=== PATIENT | female | born 1940 ===

== ENCOUNTER 2025-05-25 09:48 | Outpatient (AMB) | payer OTHER, SELFPAY ==
--- NOTE | 2025-05-25 09:52 | A.PHYSOV_ITS ---
Intake Visit Reasons: B/L KNEE INJECTIONS Intake Note: Patient is a 84 year old female here today for bilateral knee injections Clinical Fellow Required: No Allergies oxycodone Allergy (Unknown, Verified 05/25/25 09:53) Unknown Penicillins Allergy (Unknown, Verified 05/25/25 09:53) Unknown [facility] Surgical History (Updated 05/22/25 @ 09:04 by Muna Ramos MA) History of cataract surgery History of cancer surgery Social History (Updated 05/25/25 @ 09:57 by Muna Ramos MA) Alcohol intake: current Alcohol intake frequency: does not drink Patient Tobacco Use Status: Never used Tobacco Use of substances other than those prescribed or required for medical reasons: No Office Procedures AMB Knee Injection AMB Knee Injection Procedure Details: Bilateral Knee injection: The risks, benefits and complications of the left knee injection were discussed with the patient including but not limited to increased serum glucose, infection, nerve pain, fat atrophy, pigment augmentation, bleeding and pain. All questions were answered to the patient's satisfaction. Verbal consent was obtained. The patient was eager to proceed. Using aseptic technique with Betadine, ethyl chloride was then used to desensitize the skin. Using a 22-gauge needle 40 mg of Kenalog and 3 mL 2% lidocaine were injected into the knee joint. A Band-Aid was applied. Patient tolerated the procedure well without immediate complication. Postinjection instructions were given. The procedure was repeated on the right. Knee Injection - : Bilateral All charges added?: Procedure code (CPT) selection complete Office Meds Kenalog 40 mg/mL suspension for injection Performing Provider: HUA Smith [facility] Administered by: HUA Smith on 05/25/25 17:07 Dose Route Admin Location Dispensed Lot Number Expiration Date [facility] [employer] 40 mg intra-articular 1 mL [id number] [employer] Total Dispensed Waste 1 mL 0 % lidocaine (PF) 20 mg/mL (2 %) injection solution Performing Provider: HUA Smith Performing Location: [facility] Administered by: HUA Smith on 05/25/25 17:07 Dose Route Admin Location Dispensed Lot Number Expiration Date [facility] [employer] 60 mg intra-articular 50 mL [id number] Total Dispensed Waste 50 mL 0 % Assessment & Plan Assessment & Plan (1) Bilateral primary osteoarthritis of knee: Code(s): M17.0 - Bilateral primary osteoarthritis of knee Category: Medical Plan Ms. Rodriguez is a 84-year-old female seen in evaluation today for bilateral knee osteoarthritis. Today she consented to bilateral knee corticosteroid injection. She was given post-injection instructions, recommend: Moist heat compresses for 15 minutes up to 5 times daily. Continue low-impact activities including walking, biking and swimming. Follow-up with our office as needed. Thank you for allowing me to participate in the care of your patient. For Orders: Orders AMB Knee Injection Today M17.0 - Bilateral primary osteoarthritis of knee Coding Level of Care Code Procedure Only Diagnoses Bilateral primary osteoarthritis of knee M17.0 CPT Codes AMB Knee Injection - Hip/Bursa Injection - : Bilateral ([id number])
== END 2025-05-25 10:17 | disposition home or self-care (01) ==
LOC: HO.HPHYS 09:48
PROVIDERS: PCP Physician Assistant; Visit Provider Physician Assistant
DX: M17.0 Bilateral primary osteoarthritis of knee (principal)
CPT/HCPCS: 20610

== ENCOUNTER → 2025-05-25 09:48 | Outpatient (BNVA) | payer OTHER, SELFPAY | PROVIDERS: PCP Physician Assistant; Visit Provider Physician Assistant | DX: M17.0 Bilateral primary osteoarthritis of knee (principal) | CPT/HCPCS: 20610; J2003; J3301 ==